=== PATIENT | male | born 2000 | race Two or more races ===

== ENCOUNTER 2021-10-16 02:55 | Emergency (ER) | payer SELFPAY ==
[2021-10-16 03:03] VITALS: BP 111/56; PULSE 61; TEMP 98.1; BMI 20.2
== END 2021-10-16 04:02 | disposition left against medical advice (07) ==
LOC: JER 02:55
DX: S02.2XXA Fracture of nasal bones, initial encounter for closed fracture (principal); Y00.XXXA Assault by blunt object, initial encounter
CPT/HCPCS: 99283-25